=== PATIENT | female | born 1985 | race Caucasian/White ===

== ENCOUNTER 2017-08-18 10:14 | Emergency (ER) | payer OTHER ==
[~2017-08-18] VITALS: Ht 167.6 cm; Wt 65.8 kg
[~2017-08-18 10:14] MED LIST: AMOCLA875 PO; ARIP10 PO; ARIP15 PO; Abilify2 MG; BUSPIRONE; Bactrim Ds Tab1 EACH PO; CEPH500 PO; CHLO10; CHLO10 PO; CHLO25 PO; CHLO5 PO; CIME400 PO; ESCI10 PO; ESCI20 PO; ESCI5 PO; FAMO40 PO; FOLI1 PO; HYDHCL25 PO; HYDPAM25 PO; IBUP400 PO; IBUP600 PO; IBUP800 PO; Keflex500 MG PO; LANS30PKT PO; LORA.5 PO; LORA1 PO; METO10 PO; MULVITMINE PO; Naprosyn500 MG PO; OMEP20ER; OMEP40CA12 PO; OXYACE5T PO; PHENY100ER PO; POTCHL20ER PO; PROM25 PO; QUET100; QUET100 PO; QUET25; QUET25 PO; RANI150 PO; RXLORA1 PO; RXONDA4ODT MM; RXPROM25 PO; SEROQUEL; SERT100 PO; SERT50; SERT50 PO; SERTRALINE; SUBOXONE 8 MG-1 EACH SL; SUBOXONE PO; SULTRIDS PO; TRAM50 PO
== END 2017-08-18 11:19 | disposition left against medical advice (07) ==
LOC: ER 10:14
DX: Z53.21 Procedure and treatment not carried out due to patient leaving prior to being seen by health care provider (principal)

== ENCOUNTER 2017-09-12 19:58 | Emergency (ER) | payer OTHER ==
[~2017-09-12] VITALS: Ht 167.6 cm; Wt 65.8 kg
== END 2017-09-12 20:47 | disposition home or self-care (01) ==
LOC: ER 19:58
DX: H10.211 Acute toxic conjunctivitis, right eye (principal); T65.894A Toxic effect of other specified substances, undetermined, initial encounter; Z79.899 Other long term (current) drug therapy; Z86.14 Personal history of Methicillin resistant Staphylococcus aureus infection; F17.210 Nicotine dependence, cigarettes, uncomplicated
CPT/HCPCS: 99283

== ENCOUNTER 2017-09-16 14:34 | Emergency (ER) | payer OTHER ==
[~2017-09-16] VITALS: Ht 167.6 cm; Wt 65.8 kg
[2017-09-16] MEDS ORDERED: BUSP10 PO (14:47)
[2017-09-16 18:55] LABS: Calcium, Ionized (POC) 1.07 mmol/L (1.10-1.46); Chloride (POC) 99 mmol/L (98-108); Creatinine (POC) 0.7 mg/dL (0.6-1.0); Glucose (ISTAT POC) 73 mg/dL (70-99); Hemoglobin (POC) 13.6 g/dL (12.0-16.0); Sodium (POC) 141 mmol/L (135-148); Total CO2 (POC) 33 mmol/L (21-32)
[2017-09-16] MEDS ORDERED: Dilantin 100 m100 MG PO (19:06)
[2017-09-16 19:20] LABS: U Amphetamine Screen Not Detected; U Barbituate Screen Not Detected; U Benzodiazapine Screen Not Detected; U Buprenorphine Screen DETECTED; U Cannabinoids Screen Not Detected; U Cocaine Screen Not Detected; U Methadone Screen Not Detected; U Methamphetamine Screen DETECTED; U Opiates Screen Not Detected; U Oxycodone Screen Not Detected; U Phencyclidine Screen Not Detected; U Propoxyphene Screen Not Detected
== END 2017-09-16 19:25 | disposition home or self-care (01) ==
LOC: ER 14:34
PROVIDERS: Emergency Medicine
DX: G40.909 Epilepsy, unspecified, not intractable, without status epilepticus (principal); Z59.0 Homelessness; Z79.899 Other long term (current) drug therapy; F17.210 Nicotine dependence, cigarettes, uncomplicated
CPT/HCPCS: 36415; 70450; 80047; 81025; 83735; 85014; 99284

== ENCOUNTER 2018-04-27 12:00 | Emergency (ER) | payer OTHER ==
[~2018-04-27] VITALS: Ht 167.6 cm; Wt 66.2 kg
[~2018-04-27 12:00] MED LIST changes: +BUSP10 PO; +Dilantin 100 m100 MG PO
[2018-04-27 12:55] LABS: Chloride (POC) 101 mmol/L (98-108); Creatinine (POC) 0.6 mg/dL (0.6-1.0); Glucose (ISTAT POC) 88 mg/dL (70-99); Hemoglobin (POC) 12.6 g/dL (12.0-16.0); Potassium (POC) 3.6 mmol/L (3.5-5.5); Sodium (POC) 140 mmol/L (135-148); Total CO2 (POC) 29 mmol/L (21-32)
== END 2018-04-27 13:19 | disposition home or self-care (01) ==
LOC: ER 12:00
PROVIDERS: Physician Assistant
DX: R56.9 Unspecified convulsions (principal); Z91.14 Patient's other noncompliance with medication regimen; F17.210 Nicotine dependence, cigarettes, uncomplicated; Z79.899 Other long term (current) drug therapy
CPT/HCPCS: 80047; 85014; 99284

== ENCOUNTER 2018-08-05 09:55 | Emergency (ER) | payer OTHER ==
[~2018-08-05] VITALS: Ht 167.6 cm; Wt 68.0 kg
[2018-08-05] MEDS ORDERED: NAPR550 PO (21:14)
== END 2018-08-05 12:58 | disposition left against medical advice (07) ==
LOC: ER 09:55
DX: Z53.21 Procedure and treatment not carried out due to patient leaving prior to being seen by health care provider (principal)

== ENCOUNTER 2018-08-05 19:29 | Emergency (ER) | payer OTHER ==
[~2018-08-05] VITALS: Ht 167.6 cm; Wt 68.0 kg
[2018-08-05] MEDS ORDERED: NAPR550 PO (21:14)
== END 2018-08-06 00:13 | disposition home or self-care (01) ==
LOC: ER 19:29
DX: M54.5 Low back pain (principal); F32.9 Major depressive disorder, single episode, unspecified; F15.10 Other stimulant abuse, uncomplicated; F17.210 Nicotine dependence, cigarettes, uncomplicated
CPT/HCPCS: 74176; 96372; 99284-25; J1200; J1630; J2060

== ENCOUNTER 2018-09-22 22:05 | Emergency (ER) | payer OTHER ==
[~2018-09-22] VITALS: Ht 167.6 cm; Wt 63.5 kg
[~2018-09-22 22:05] MED LIST changes: +NAPR550 PO
[2018-09-23] MEDS ORDERED: Cyclobenzaprine5 MG PO (01:40)
[2018-09-23] MEDS ORDERED: IBUP600 PO (01:40)
== END 2018-09-23 02:30 | disposition home or self-care (01) ==
LOC: ER 22:05
DX: M54.5 Low back pain (principal); G89.29 Other chronic pain; F19.10 Other psychoactive substance abuse, uncomplicated; R19.7 Diarrhea, unspecified; Z79.899 Other long term (current) drug therapy; F17.210 Nicotine dependence, cigarettes, uncomplicated
CPT/HCPCS: 96372; 99283-25; J1200; J1630; J1885; J2060

== ENCOUNTER 2023-06-29 21:34 | Emergency (ER) | payer OTHER ==
[~2023-06-29] VITALS: Ht 167.6 cm; Wt 77.1 kg
[~2023-06-29 21:34] MED LIST changes: +Cyclobenzaprine5 MG PO
[2023-06-29] MEDS ORDERED: BUPRENORPHINE HC8 MG SL (21:58)
[2023-06-29 22:31] LABS: BASOPHILS ABSOLUTE AUTO 0.07 K/mm3 (0.00-0.23); BASOPHILS PERCENT AUTO 1 % (0-2); EOSINOPHILS ABSOLUTE AUTO 0.11 K/mm3 (0.00-0.68); EOSINOPHILS PERCENT AUTO 1 % (0-6); Hematocrit 39.6 % (33.0-51.0); IMMATURE GRAN ABSOLUTE AUTO 0.02 K/mm3 (0.00-0.10); IMMATURE GRAN PERCENT AUTO 0 % (0-1); LYMPHOCYTES ABSOLUTE AUTO 2.56 K/mm3 (0.84-5.20); LYMPHOCYTES PERCENT AUTO 31 % (21-46); MONOCYTES ABSOLUTE AUTO 0.65 K/mm3 (0.16-1.47); MONOCYTES PERCENT AUTO 8 % (4-13); Mean Corpuscular HGB 30.8 pg (26.0-34.0); Mean Corpuscular HGB Conc 35.4 g/dL (31.5-36.5); Mean Corpuscular Volume 87 fL (80-100); Mean Platelet Volume 10.1 fL (9.1-12.4); NEUTROPHILS ABSOLUTE AUTO 4.82 K/mm3 (1.96-9.15); NEUTROPHILS PERCENT AUTO 59 % (41-73); Platelet Count 258 K/mm3 (150-400); RDW Coefficient Variation 12.2 % (11.7-14.2); RDW Standard Deviation 39.4 fL (35.1-46.3); Red Blood Cell Count 4.54 M/mm3 (3.80-5.20); White Blood Cell Count 8.23 K/mm3 (4.00-11.30)
[2023-06-29 22:36] LABS: Alanine Aminotransfer (ALT/SGP 24 U/L (12-78); Albumin/Globulin Ratio 1.2 (0.8-1.8); Alk Phos 54 U/L (50-136); Anion Gap 6 mmol/L (6-16); Aspartate Aminotrans (AST/SGOT 24 U/L (12-37); Bilirubin, Total 0.5 mg/dL (0.1-1.0); Blood Urea Nitrogen 16 mg/dL (8-24); Bun/Creatinine Ratio 29.1 (12.0-20.0); CO2, Blood 27 mmol/L (21-32); Calcium, Blood 9.2 mg/dL (8.5-10.1); Chloride, Blood 107 mmol/L (98-108); Creatinine, Blood 0.55 mg/dL (0.40-1.00); Ethanol (Alcohol), Blood, Med <3 mg/dL; Globulin, Blood 3.4 g/dL (2.2-4.0); Glomerular Filtration Rate 121 (60-); Glucose, Blood 99 mg/dL (70-99); Potassium, Blood 3.8 mmol/L (3.5-5.5); Sodium, Blood 140 mmol/L (136-145); Total Protein, Blood 7.4 g/dL (6.4-8.2)
[2023-06-29 22:45] VITALS: BP 118/74
== END 2023-06-30 00:58 | disposition home or self-care (01) ==
LOC: ER 21:34
PROVIDERS: Student in an Organized Health Care Education/Training Program
DX: S09.90XA Unspecified injury of head, initial encounter (principal); S81.011A Laceration without foreign body, right knee, initial encounter; S80.212A Abrasion, left knee, initial encounter; S70.211A Abrasion, right hip, initial encounter; S50.312A Abrasion of left elbow, initial encounter; S70.311A Abrasion, right thigh, initial encounter; S30.810A Abrasion of lower back and pelvis, initial encounter; S60.416A Abrasion of right little finger, initial encounter; Z87.820 Personal history of traumatic brain injury; F17.210 Nicotine dependence, cigarettes, uncomplicated; Z79.899 Other long term (current) drug therapy; V40.5XXA Car driver injured in collision with pedestrian or animal in traffic accident, initial encounter; Y92.410 Unspecified street and highway as the place of occurrence of the external cause
CPT/HCPCS: 12002; 70450; 71260; 72125; 73562-RT; 74177; 80053; 85025; 90715; 99285-25; Q9967

== ENCOUNTER → 2024-11-28 | Outpatient (CLI) | payer OTHER ==
[~2024-11-28] MED LIST changes: +BUPRENORPHINE HC8 MG SL
== END | disposition home or self-care (01) ==
LOC: LAB 15:15 → LAB SHORT 15:15
DX: N39.0 Urinary tract infection, site not specified (principal)
CPT/HCPCS: 87086